=== PATIENT | male | born 1955 ===

== ENCOUNTER → 2024-11-27 06:49 | Outpatient (REF) | payer OTHER, SELFPAY ==
[2024-11-27 08:41] LABS: Blood Urea Nitrogen 22 mg/dl (9-20); Calcium 9.3 mg/dl (8.4-10.2); Carbon Dioxide 23 mmol/L (22-30); Chloride 105 mmol/L (98-107); Glucose 96 mg/dl (70-99); HDL Cholesterol 41 mg/dl; LDL Cholesterol, Calculated 84 mg/dl; Potassium 5.2 mmol/L (3.5-5.1); Sodium 136 mmol/L (135-145); Total Cholesterol 140 mg/dl (50-199); Triglyceride 77 mg/dl (10-149); Very Low Density Lipoprotein 15 mg/dl (0-30); eGFR 50.08
== END ==
LOC: REG 06:49
PROVIDERS: ATTENDING PHYSICIAN Internal Medicine Cardiovascular Disease; FAMILY PHYSICIAN Internal Medicine
DX: I10 Essential (primary) hypertension (principal)
CPT/HCPCS: 36415; 80048; 80061; 83036

== ENCOUNTER 2024-12-07 09:05 | Outpatient (RCR) | payer OTHER, SELFPAY | END 2024-12-07 23:59 | disposition home or self-care (01) | LOC: CRHB 09:05 | PROVIDERS: ATTENDING PHYSICIAN Internal Medicine Cardiovascular Disease; PRIMARYCARE PHYSICIAN Internal Medicine | DX: Z95.2 Presence of prosthetic heart valve (principal) | CPT/HCPCS: G0422; G0423 ==

== ENCOUNTER 2025-01-04 08:45 | Outpatient (RCR) | payer OTHER, SELFPAY ==
[2024-12-25 08:33] LABS: HDL Cholesterol 43 mg/dl; LDL Cholesterol, Calculated 100 mg/dl; Total Cholesterol 161 mg/dl (50-199); Triglyceride 94 mg/dl (10-149); Very Low Density Lipoprotein 18 mg/dl (0-30)
== END 2025-01-04 23:59 | disposition home or self-care (01) ==
LOC: CRHB 08:45
PROVIDERS: ATTENDING PHYSICIAN Internal Medicine Cardiovascular Disease; OTHER PHYSICIAN Family Medicine; PRIMARYCARE PHYSICIAN Internal Medicine
DX: Z95.2 Presence of prosthetic heart valve (principal)
CPT/HCPCS: 80061; G0422; G0423

== ENCOUNTER 2025-02-05 09:44 | Outpatient (RCR) | payer OTHER, SELFPAY ==
[2025-01-22 07:49] LABS: HDL Cholesterol 38 mg/dl; LDL Cholesterol, Calculated 102 mg/dl; Total Cholesterol 160 mg/dl (50-199); Triglyceride 104 mg/dl (10-149); Very Low Density Lipoprotein 20 mg/dl (0-30)
== END 2025-02-05 23:59 | disposition home or self-care (01) ==
LOC: CRHB 09:44
PROVIDERS: ATTENDING PHYSICIAN Internal Medicine Cardiovascular Disease; OTHER PHYSICIAN Family Medicine; PRIMARYCARE PHYSICIAN Internal Medicine
DX: Z95.2 Presence of prosthetic heart valve (principal)
CPT/HCPCS: 80061; G0422; G0423

== ENCOUNTER 2025-02-19 10:20 | Outpatient (RCR) | payer OTHER, SELFPAY | END 2025-02-19 10:51 | disposition home or self-care (01) | LOC: CRHB 10:20 | PROVIDERS: ATTENDING PHYSICIAN Internal Medicine Cardiovascular Disease; OTHER PHYSICIAN Family Medicine; PRIMARYCARE PHYSICIAN Internal Medicine | DX: I25.10 Atherosclerotic heart disease of native coronary artery without angina pectoris (principal); Z95.2 Presence of prosthetic heart valve | CPT/HCPCS: G0422; G0423 ==